=== PATIENT | male | born 1990 | race Caucasian/White ===

== ENCOUNTER 2021-02-05 11:55 | Emergency (ER) | payer SELFPAY ==
[~2021-02-05 11:55] MED LIST: BENTYL 10MG CAP10 MG PO; PROTONIX40 MG PO; ZOFRAN4 MG PO
[2021-02-05] MEDS ORDERED: CYCLOBENZAPRINE10 MG PO (13:12)
[2021-02-05] MEDS ORDERED: IBUPROFEN800 MG PO (13:12)
== END 2021-02-05 13:32 | disposition home or self-care (01) ==
LOC: ER1 11:55
DX: S39.012A Strain of muscle, fascia and tendon of lower back, initial encounter (principal); F17.200 Nicotine dependence, unspecified, uncomplicated; X50.0XXA Overexertion from strenuous movement or load, initial encounter
CPT/HCPCS: 72100; 81001; 96372; 99283; J1885; J2360